=== PATIENT | male | born 1960 | race Caucasian/White ===

== ENCOUNTER 2017-11-21 07:50 | Emergency (ER) | payer MEDICAID ==
[~2017-11-21] VITALS: Ht 172.7 cm; Wt 79.5 kg
[2017-11-21 08:08] VITALS: Ht 172.7 cm; Wt 79.5 kg
[2017-11-21 09:07] LABS: BASOPHILS 0.6 % (0-2); EOSINOPHILS 2.6 % (0-7); HEMATOCRIT 41.1 % (42.0-54.0); HEMOGLOBIN 14.1 g/dL (13.5-17.5); IMMATURE GRANULOCYTES 0.4 % (0-5); LYMPHOCYTES 17.7 % (15-50); MCHC 34.3 g/dL (31.0-37.0); MCV 93.4 fL (80.0-100.0); MEAN PLATELET VOLUME 9.9 fL (7.4-10.4); MONOCYTES 10.2 % (2-11); NEUTROPHILS 68.5 % (40-80); PLATELET COUNT 203 10x3/uL (130-400); RDW 13.3 % (11.5-14.5); WBC 5.4 10x3/uL (4.8-10.8)
[2017-11-21 09:33] LABS: ALBUMIN 3.6 g/dL (3.4-5.0); ALKALINE PHOSPHATASE 60 U/L (46-116); ALT (SGPT) 40 U/L (10-68); AMYLASE - SERUM 60 U/L (25-115); CALC OSMOLALITY 275 mosm/kg (275-300); CALCIUM 8.6 mg/dL (8.5-10.1); CARBON DIOXIDE 30.4 mmol/L (21.0-32.0); CHLORIDE - SERUM 106 mmol/L (98-107); GLUCOSE 100 mg/dL (74-106); LIPASE 337 U/L (73-393); POTASSIUM - SERUM 4.3 mmol/L (3.5-5.1); PROTEIN - SERUM 6.5 g/dL (6.4-8.2); SODIUM 138 mmol/L (136-145); UREA NITROGEN 13 mg/dL (7-18); eGFR NON AFRICAN AMERICAN 82 mL/min (90-120)
[2017-11-21 09:45] LABS: APPEARANCE CLOUDY (CLEAR); BACTERIA MANY /hpf (NONE SEEN); BILIRUBIN NEGATIVE (NEGATIVE); COLOR YELLOW (YELLOW); EPITHELIAL CELLS 0-5 /hpf (0-5); GLUCOSE NEGATIVE (NEGATIVE); KETONE NEGATIVE (NEGATIVE); MUCUS <1+ /lpf (NONE SEEN); NITRITE POSITIVE (NEGATIVE); PROTEIN NEGATIVE (NEGATIVE); RED CELLS - URINE OCC /hpf (0-5); UROBILINOGEN NORMAL (NORMAL)
[2017-11-21] MEDS ORDERED: LEVAQUIN500 MG PO (11:01)
[2017-11-21 11:33] VITALS: BP 167/97
== END 2017-11-21 11:22 | disposition home or self-care (01) ==
LOC: D.ER 07:50
PROVIDERS: Family Medicine
DX: N39.0 Urinary tract infection, site not specified (principal); K40.91 Unilateral inguinal hernia, without obstruction or gangrene, recurrent

== ENCOUNTER 2018-01-30 06:20 | Day surgery (SDC) | payer MEDICAID ==
[~2018-01-30] VITALS: Ht 172.7 cm; Wt 82.6 kg
[~2018-01-30 06:20] MED LIST: LEVAQUIN500 MG PO
[2018-01-30 07:19] VITALS: BP 141/87; Ht 172.7 cm; Wt 82.6 kg
[2018-01-30] MEDS ORDERED: NORCO 7.5/325 T1 TA1 PO (10:16)
== END 2018-01-30 20:03 | disposition home or self-care (01) ==
LOC: D.OPS 06:20 → D.PAN 09:00 → D.OPS 09:00 → D.PAN 09:25 → D.OPS 09:25 → D.PAN 11:00 → D.OPS 11:00
DX: K40.90 Unilateral inguinal hernia, without obstruction or gangrene, not specified as recurrent (principal); Z01.812 Encounter for preprocedural laboratory examination